=== PATIENT | female | born 2000 | race Caucasian/White ===

== ENCOUNTER → 2018-09-14 14:30 | Observation (INO) ==
[2018-09-14 12:40] LABS: Amphetamine Screen,Urine Negative ng/mL (Cutoff=1000); Barbiturate Screen,Urine Negative ng/mL (Cutoff=200); Benzodiazepines Screen,Urine Negative ng/mL (Cutoff=200); Cannabinoid Screen,Urine Negative ng/mL (Cutoff = 50); Cocaine Screen,Urine Negative ng/mL (Cutoff= 300); Opiate Screen,Urine Negative ng/mL (Cutoff=300); Phencyclidine Screen,Urine Negative ng/mL (Cutoff=25)
[2018-09-14 12:48] LABS: Bilirubin,Urine Negative (Negative); Blood,Urine Negative (Negative); Clarity,Urine Clear (Clear); Color,Urine Yellow (Yellow); Glucose,Urine (UA) Normal (Normal); Ketones,Urine Negative (Negative); Leukocyte Esterase,Urine Negative (Negative); Nitrite,Urine Negative (Negative); Protein,Urine Negative (Neg-Trace); Specific Gravity,Urine 1.011 (1.010-1.025); Urobilinogen,Urine Normal (Normal)
--- NOTE | 2018-09-14 13:41 | Discharge Summary ---
Date of Encounter: 09/14/18 Time of Encounter: 13:40 - Discharge Diagnosis (1) 20 weeks gestation of Priority: Primary Status: Acute Comments: Admit to observation for labor evaluation (2) Abdominal cramping affecting Priority: Secondary Status: Acute Comments: Rare contraction on toco monitor. Cervix appears closed visually. Vaginosis panel and GC/Chlamydia samples collected with results all negative. (3) Vaginal discharge during in second trimester Priority: Secondary Status: Acute Comments: Small amount of white/yellow vaginal discharge noted upon SSE. Cervix appears closed on visualization. Vaginosis panel and GC/Chlamydia collected and all returned negative. - Discharge Medications Prescriptions: No Action Levonorgestrel-Ethin Estradiol [Levonor-Eth Estrad 0.15-0.03] 1 each PO DAILY Albuterol Sulfate [Proair Hfa] 1 puff IH DAILY Home Medications: Levonorgestrel-Ethin Estradiol [Levonor-Eth Estrad 0.15-0.03] 1 each PO DAILY 01/20/15 [History] Albuterol Sulfate [Proair Hfa] 1 puff IH DAILY 10/04/15 [History] Allergies/Adverse Reactions: Allergy/AdvReac Type Severity Reaction Status Date / Time No Known Allergies Allergy Verified 12/04/15 20:18 Data Procedures and tests throughout hospitalization: Laboratory Tests 09/14/18 09/14/18 12:05 12:15 Urine Color Yellow Urine Clarity Clear Urine pH 7.0 Ur Specific [place] 1.011 Urine Protein Negative Urine Glucose (UA) Normal Urine Ketones Negative Urine Blood Negative Urine Nitrite Negative Urine Bilirubin Negative Urine Urobilinogen Normal Ur Leukocyte Esterase Negative Ur Culture Indicated? NO Urine Opiates Screen Negative Ur Barbiturates Screen Negative Ur Phencyclidine Scrn Negative Ur Amphetamines Screen Negative U Benzodiazepines Scrn Negative Urine Cocaine Screen Negative U Marijuana (THC) Screen Negative Ur Drug Screen Interp See Below Labs on day of discharge: Labs from last 24 hours 09/14/18 09/14/18 12:15 12:05 Urine Color Yellow Urine Clarity Clear Urine pH 7.0 Ur Specific [place] 1.011 Urine Protein Negative Urine Glucose (UA) Normal Urine Ketones Negative Urine Blood Negative Urine Nitrite Negative Urine Bilirubin Negative Urine Urobilinogen Normal Ur Leukocyte Esterase Negative Ur Culture Indicated? NO Urine Opiates Screen Negative Ur Barbiturates Screen Negative Ur Phencyclidine Scrn Negative Ur Amphetamines Screen Negative U Benzodiazepines Scrn Negative Urine Cocaine Screen Negative U Marijuana (THC) Screen Negative Ur Drug Screen Interp See Below Date of admission: 09/14/18 11:57 Discharging clinician: Kelli Walters Anticipated date of discharge: 09/14/18 - Patient Status Disposition: Home, Self-Care Condition: Good Functional capacity at discharge: independent ambulation Overall status at discharge: patient is progressing back to baseline - Discharge Instructions - Diet and Activity Activity: resume usual activities as tolerated Diet: regular diet Hospital Course EMBEDDED ENGINEER Hospital course: Patient arrives today with complaints of back pain and uterine tightening since . She states there were periods where it did lighten up when she rested and drank plenty of water. She also reported some watery vaginal discharge. She is a her last delivery was born full-term at 37+ weeks. She denies any history of contractions with the first . She denies any consultations thus far with the current . Sterile speculum exam was completed with a small amount of white yellow discharge noted. Sample was obtained for vaginosis panel, cervix appears closed on visualization. GC/ chlamydia was also collected. All samples returned negative, urine was completely within normal limits. Reviewed nonpharmacological methods for relief of discomfort and use of Tylenol and healthcare receptionist. Patient is to return for routine visit as scheduled. Time Attestation: Total time spent providing and/or coordinating discharge services: Time Spent: Less than 30 minutes Exam - Constitutional General appearance IM: A&O X 3, pleasant, no acute distress, answers questions appropriately - Respiratory Respiratory exam: Present: CTAB - Cardiovascular Cardiovascular exam IM: Present: RRR, +S1, +S2 - GI/Abdominal GI/Abdominal exam IM: normal bowel sounds - Rectal Rectal exam: deferred - External exam: normal external exam - Extremities Exam Extremities exam IM: Present: full ROM, normal capillary refill, normal inspection - Neurological Exam Neurological exam: alert, normal gait, oriented X3 - VTE Reasons for not Prescribing Prophylaxis: Treatment not Indicated - Low risk for VTE
[2018-09-14 13:45] LABS: Candida DNA Not Detected (Not Detect); Gardnerella DNA Not Detected (Not Detect); Trichomonas DNA Not Detected (Not Detect)
== END | disposition home or self-care (01) ==
LOC: 1NENULAB
PROVIDERS: ADMIT Registered Nurse; ATTEND Registered Nurse

== ENCOUNTER 2019-01-26 10:53 | Inpatient (IN) ==
[~2019-01-26 10:53] MED LIST: *HR* Nalbuphine 10 MG/ML AMPUL IVP PRN; Famotidine 20 MG/2 ML VIAL IVP PRN; Metoclopramide 10 MG/2 ML VIAL IVP PRN; Naloxone 0.4 MG/ML INJ IVP PRN; Ondansetron 4 MG/2 ML VIAL IVP PRN
--- NOTE | 2019-01-26 10:59 | OB/GYN History & Physical ---
Date of Encounter: 01/26/19 Time of Encounter: 10:56 Assessment and Plan (1) 39 weeks gestation of Current visit: Yes Status: Acute admitted for labor Dr. Montez aware of patient's status and POC. She is here and available if needed (2) Tobacco use affecting in third trimester, antepartum Current visit: Yes Status: Acute smoking cessation discussed with patient History of Present Illness Chief complaint: labor HPI: Ms. López is a 18 year old female @ 39w1d [facility] with contractions that started around 0400. Patient reports she did have some vaginal discharge yesterday evening. Patient denies any vaginal bleeding. She reports good movement. Patient denies any complications with current . She receives care with Dr. Scherer. Blood type: A Positive Rubella: Negative Hep B: Nonreactive GBS: Negative Past Med Surg Social Fam HX - Past Medical History Source: patient Medical history: asthma Additional medical history: Seasonal allergies Psychiatric history: no psych history - Past Surgical History Surgical History: orthopedic, other Additional surgical history: Rt knee surgery - Social History Smoking Status: Current every day smoker Packs per day: 5 cig a day Smokeless Tobacco Status: No Alcohol use: none Drug use: none Current living situation: Home - Independent Activity Level: Independent ambulation - Family History Mother Living Status: Still Living Hx Family Cardiac Disorders: No Hx Family Respiratory Disorders: No Hx Family Cancer: No Hx Family GI Disorders: No Hx Family Genitourinary Disorders: No Hx Family Endocrine Disorder: No Hx Family Musculoskeletal Disorders: No Hx Family Neuromuscular Disorders: No Hx Family Neurologic Disorders: No Hx Family HEENT Disorders: No Hx Family Autoimmune Disorders: No Hx Family Reproductive Disorders: No Hx Family Psychosocial Disorders: No Hx Family Medical Disorders: No Obstetrical History - Pregnancies : 2 Para: 1 Term: 1 : 0 Ab's: 0 Livin Medications and Allergies Pnv No.95/Ferrous Fum/Folic AC [ Caplet] 1 each PO DAILY 10/24/18 [History] Allergy/AdvReac Type Severity Reaction Status Date / Time No Known Allergies Allergy Verified 10/24/18 22:20 Review of System OB - Constitutional Constitutional ROS IM: no chills, no fever(s), no headache(s) - Cardiovascular Cardiovascular: no chest pain, no syncope - Respiratory Respiratory: no cough, no dyspnea, no wheezing - Gastrointestinal Gastrointestinal: no abdominal pain, no heartburn, no nausea, no vomiting - Genitourinary Genitourinary: vaginal discharge (per HPI), no urinary frequency, no urinary hesitancy, no urinary urgency, no vaginal odor, no vaginal pruritis Exam - Constitutional Constitutional: well developed, well nourished, no acute distress, average body habitus - HEENT HEENT: Normocephaly, Mucus Membranes Moist - Neck Neck exam: full ROM, supple - Lungs Respiratory exam: wheezes (bilateral) - Cardiovascular Cardiovascular exam: RRR, +S1, +S2 - Abdomen Abdomen: Present: bowel sounds normal, gravid, non tender - Extremities Extremities exam: full ROM, normal inspection Deep Tendon Reflex Grade: 2+ Normal - Cervix Dilation: 5 Effacement: 90 Station: -1 - Uterus Uterus exam: Present: normal size, normal contour - Anus/Rectum Anus/Rectum: Present: normal perianal skin - Comments Comments: FHR 135 bpm moderate variability +15x15 accels noted no decels noted at this time. Contractions irregular at this time. Results All other labs normal. - VTE Reasons for not Prescribing Prophylaxis: Treatment not Indicated - Low risk for VTE
[2019-01-26] MEDS ORDERED: Ringers Solution, Lactated 1,000 ML IVC SCH (11:00)
[2019-01-26 11:37] LABS: Basophils % 0.2 %; Eosinophils # 0.1 K/mcL (0.0-0.6); Eosinophils % 0.4 %; Hematocrit 37.6 % (35.3-44.9); Hemoglobin 12.4 g/dL (11.5-15.4); Immature Granulocytes % 1.2 % (0-4); Lymphocytes # 2.5 K/mcL (0.6-4.6); Lymphocytes % 14.8 %; Mean Corpuscular Hemoglobin 30.7 pg (28.0-33.3); Mean Corpuscular Volume 93.1 fL (83.0-100.0); Mean Platelet Volume 11.2 fL (9.4-12.4); Monocytes # 1.2 K/mcL (0.0-1.3); Neutrophils # 12.8 K/mcL (1.6-8.9); Platelet Count 253 K/mcL (140-400); Red Blood Count 4.04 M/mcL (3.82-4.97); Red Cell Distribution Width 13.1 % (11.5-14.5); Segmented Neutrophils % 76.4 %; White Blood Count 16.8 K/mcL (4.3-11.1)
[2019-01-26 11:53] LABS: Amphetamine Screen,Urine Negative ng/mL (Cutoff=1000); Barbiturate Screen,Urine Negative ng/mL (Cutoff=200); Benzodiazepines Screen,Urine Negative ng/mL (Cutoff=200); Cannabinoid Screen,Urine Negative ng/mL (Cutoff = 50); Cocaine Screen,Urine Negative ng/mL (Cutoff= 300); Opiate Screen,Urine Negative ng/mL (Cutoff=300); Phencyclidine Screen,Urine Negative ng/mL (Cutoff=25)
--- NOTE | 2019-01-26 12:21 | OB Labor Progress Note ---
Date of Encounter: 01/26/19 Time of Encounter: 12:19 Labor Progress Note - Subjective Subjective: Patient doing well. Discussed POC with patient. Patient denies any questions or concerns. - Cervix Cervix: 6/100/0 - Heart Tones Heart Tones: 140 bpm moderate variability +15x15 accels no decels noted. Cat. 1 tracing - Mylo Mylo: 2-5 min apart - Interventions Interventions: SVE, AROM moderate amount of clear fluid. Patient tolerated well. - Plan Physician notified: No Plan: Continue labor management anticipate
[2019-01-26] MEDS ORDERED: Epidural Premix (fent/bupiv) 110 ML EP SCH (14:15)
[2019-01-26] MEDS ORDERED: Lidocaine -MPF 1% 5 ML AMPUL ONE (14:56)
--- NOTE | 2019-01-26 15:16 | OB/GYN Procedure Note ---
Delivery - Delivery Date: 01/26/19 Provider: Violette Estrada (Huan, PGY1) Intrapartum events: none Delivery augmentation: rupture of membranes Delivery monitor: external FHT, external uterine Anesthesia: epidural Quantitated Blood Loss: 100 - (s) Infant A Delivery Date: 01/26/19 Infant Delivery Time: 15:17 Presentation: vertex Position: KAT Route of delivery: Gender: Male Viability: Viable Pounds: 7 Ounces: 10 at 1 minute: 8 at 5 mins: 9 Shoulder Dystocia: not encountered Placenta: spontaneous, uterine exploration Cord: nuchal cord (x1 loose), 3 umbilical vessels, nuchal reduced - Repair Episiotomy: none Laceration Description: Labial (left labial repaired with 4-0 vicryl, right labi al hemastatic) - Complications Delivery complications: none - Disposition Mom disposition: stable in LDR disposition: stable in LDR - Comments Comments: Called to LDR for delivery. Patient placed in stirrups and prepped for delivery. I was gowned and gloved and together with Dr. Pressley, PGY 1 delivered a viable male over an intact perineum. A nuchal cord was noted and easily reduced. No shoulder dystocia or meconium was encountered. was placed on maternal abdomen. Lidocaine 1% was used to anesthetize the left labia for repair. A 4-0 vicryl was used for left labial repair. The right labial laceration was hemastatic and did not require repair. The cord was then clamped and cut after pulsations ceased. A cord segment was collected. Placenta delivered spontaneously and visually intact. The uterus was explored no blood clots noted. EBL 100, Apgars 8/9. All counts correct. Pericare provided. Both Mother and infant stable in LDR for 2 hour recovery.
--- NOTE | 2019-01-26 15:22 | Anesthesia Evaluation PreOp ---
Date of Encounter: 01/26/19 Time of Encounter: 14:15 - Past History Planned Operation: karli Cardiac History: Denies any Significant Hx Pulmonary History: Denies Any Significant HX RN MED SURG History: Denies Any Significant HX Other Medical History: Denies Any Significant HX Anesthesia History: No Prior Anesthetic Complications : Yes Test: Positive Alcohol Use: none Drug use: none Medications and Allergies Pnv No.95/Ferrous Fum/Folic AC [ Caplet] 1 each PO DAILY 10/24/18 [History] Allergy/AdvReac Type Severity Reaction Status Date / Time No Known Allergies Allergy Verified 10/24/18 22:20 - Meds/Allergy Pre-op Review Medications Reviewed: Yes Allergies Reviewed: Yes Beta Blockers on Current Med List: No Anesthesia Results - Labs 01/26/19 11:01 Anesthesia Exam - HEENT Pupil (Motor): Pupils equal Mallampati: II Teeth: Normal Oral Opening: Greater than 3 - RN MED SURG LOC: Oriented RN MED SURG Motor: Normal RUE, Normal LUE, Normal RLE, Normal LLE, Normal Face RN MED SURG Sensory: Normal: RUE, LUE, RLE, LLE, Face - Cardiac Rhythm: Regular Murmur: None JVD: No Carotid Bruit: No - Pulmonary Breath Sounds: bilateral Clear Respiratory Effort: Symmetrical Anesthesia Assess/Plan ASA Score: 1 Level of consciousness: Cooperative Anesthetic Plan: Epidural
--- NOTE | 2019-01-26 15:24 | Anesthesia Procedures ---
Date of Encounter: 01/26/19 Time of Encounter: 14:15 Procedures: Anesthesia - Epidural/Spinal Patient ID/Chart reviewed: Yes Patient examined: Yes OB Eval: Gestational age: 39.1 OB Eval: : 2 OB Eval: Hx Para: 1 OB Eval: Contractions: Non-stressed pattern Consent Obtained: Yes Site Prep: Aseptic Technique, Sterile prep and drape, Povidone-Iodine 1% Patient position: upright Amount of Local Anesthetic used: 3 Touhy Needle Gauge: 18 Touhy Needle Depth (cm): 5 Catheter Depth at Skin (cm): 8 Test Dose (1.5% Lido + Epi): Volume given (mls): 3 Test Dose Result: Negative Loading Dose Administered: Thru Catheter Infusion Rate (mls/hr): [address]: Tegaderm, Tape Interspace Used: L4-L5 Loss of Resistance (VISH): Yes Blood: No CSF: No Paresthesia: No Vitals + FHT's: tolerated well see nursing notes, FHTS VSS throughout
[2019-01-26] MEDS ORDERED: Acetaminophen 325 MG TABLET PO PRN (17:39)
[2019-01-26] MEDS ORDERED: Benzocaine/Menthol 56 GM AEROSOL SPRAY TP PRN (17:39)
[2019-01-26] MEDS ORDERED: Lanolin 7 G OINT...G. TP PRN (17:39)
[2019-01-26] MEDS ORDERED: Oxytocin 20 units/ LR 1000 mL 20 UNIT/1,000 ML BAG IVC SCH (17:39)
[2019-01-26] MEDS ORDERED: Measles/Mumps/Rubella Vacc 0.5 ML VIAL SQ PRN (17:39)
[2019-01-26] MEDS ORDERED: Ibuprofen 600 MG TABLET PO PRN (17:39)
[2019-01-27] MEDS ORDERED: Prenatal Vit/FA 1 EACH TABLET PO SCH (09:00)
[2019-01-27 09:32] VITALS: BP 102/62
--- NOTE | 2019-01-27 09:41 | Discharge Summary ---
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 PRN Reason: Sore Nipples Mupirocin Calcium [Bactroban Nasal] 1 gm NS BID #20 oint...g. Continued Pnv No.95/Ferrous Fum/Folic AC [ Caplet] 1 each PO DAILY Home Medications: Pnv No.95/Ferrous Fum/Folic AC [ Caplet] 1 each PO DAILY 10/24/18 [History] Acetaminophen [Tylenol] 650 mg PO Q6HR PRN tablet 01/27/19 [Rx] Benzocaine/Menthol [place] [Dermoplast [place]] 1 appl TP QID PRN aerosol 01/27/19 [Rx] Docusate [Colace] 100 mg PO BID #60 capsule 01/27/19 [Rx] Ibuprofen [Motrin] 600 mg PO Q6HR PRN #60 tablet 01/27/19 [Rx] Lanolin [Lansinoh] 1 appl TP TID PRN oint...g. 01/27/19 [Rx] Mupirocin Calcium [Bactroban Nasal] 1 gm NS BID #20 oint...g. 01/27/19 [Rx] Allergies/Adverse Reactions: Allergy/AdvReac Type Severity Reaction Status Date / Time No Known Allergies Allergy Verified 10/24/18 22:20 Data Procedures and tests throughout hospitalization: Laboratory Tests 01/26/19 01/26/19 01/26/19 10:16 11:01 17:30 WBC 16.8 H RBC 4.04 Hgb 12.4 Hct 37.6 MCV 93.1 MCH 30.7 MCHC 33.0 RDW 13.1 Plt Count 253 MPV 11.2 Immature Gran % 1.2 Seg Neutrophils % 76.4 Lymphocytes % 14.8 Monocytes % 7.0 Eosinophils % 0.4 Basophils % 0.2 Neutrophils # 12.8 H Lymphocytes # 2.5 Monocytes # 1.2 Eosinophils # 0.1 Basophils # 0.0 Nasal Screen MRSA (PCR) DETECTED A Urine Opiates Screen Negative Ur Buprenorphine Scrn Negative Ur Barbiturates Screen Negative Ur Phencyclidine Scrn Negative Ur Amphetamines Screen Negative U Benzodiazepines Scrn Negative Urine Cocaine Screen Negative U Marijuana (THC) Screen Negative Ur Drug Screen Interp See Below Labs on day of discharge: Labs from last 24 hours 01/26/19 01/26/19 01/26/19 17:30 11:01 10:16 WBC 16.8 H RBC 4.04 Hgb 12.4 Hct 37.6 MCV 93.1 MCH 30.7 MCHC 33.0 RDW 13.1 Plt Count 253 MPV 11.2 Immature Gran % 1.2 Seg Neutrophils % 76.4 Lymphocytes % 14.8 Monocytes % 7.0 Eosinophils % 0.4 Basophils % 0.2 Neutrophils # 12.8 H Lymphocytes # 2.5 Monocytes # 1.2 Eosinophils # 0.1 Basophils # 0.0 Nasal Screen MRSA (PCR) DETECTED A Urine Opiates Screen Negative Ur Buprenorphine Scrn Negative Ur Barbiturates Screen Negative Ur Phencyclidine Scrn Negative Ur Amphetamines Screen Negative U Benzodiazepines Scrn Negative Urine Cocaine Screen Negative U Marijuana (THC) Screen Negative Ur Drug Screen Interp See Below Date of admission: 01/26/19 10:53 Consults: 01/26/19 17:39 Consult to Hospital Admitting Clerk [CONS] Routine Comment: Vaginal delivery, consult needed Discharging clinician: Jessica Miller Anticipated date of discharge: 01/27/19 - Patient Status Disposition: Home, Self-Care Condition: Good Functional capacity at discharge: independent ambulation Overall status at discharge: patient is progressing back to baseline - Discharge Instructions Instructions: Measles, Mumps, and Rubella Virus Vaccine, Live (MMR Vaccine) (Injection) Follow Up With: Violette Estrada CNM [Non-Partnered Physician] - - Diet and Activity Activity: resume usual activities as tolerated Diet: regular diet Hospital Course Reason for admission: IUP at term Delivery: Episiotomy: none Laceration: other Other procedures: none complications: none Discharge diagnosis: IUP at term delivered baby: male Hospital course: Delivery - Delivery Date: 01/26/19 Provider: Violette Estrada (Huan, PGY1) Intrapartum events: none Delivery augmentation: rupture of membranes Delivery monitor: external FHT, external uterine Anesthesia: epidural Quantitated Blood Loss: 100 - (s) Infant A Infant Delivery Date: 01/26/19 Delivery Time: 15:17 Presentation: vertex Position: KAT Route of delivery: Gender: Male Viability: Viable Pounds: 7 Ounces: 10 at 1 minute: 8 at 5 mins: 9 Shoulder Dystocia: not encountered Placenta: spontaneous, uterine exploration Cord: nuchal cord (x1 loose), 3 umbilical vessels, nuchal reduced - Repair Episiotomy: none Laceration Description: Labial (left labial repaired with 4-0 vicryl, right labial hemastatic) - Complications Delivery complications: none - Disposition Mom disposition: stable in PP and appropriate for discharge. Time Attestation: Total time spent providing and/or coordinating discharge services: Time Spent: Less than 30 minutes Exam - Constitutional Vitals: Temp Pulse Resp BP Pulse Ox 98.4 F 83 14 102/62 98 01/27/19 09:31 01/27/19 09:31 01/27/19 09:31 01/27/19 09:31 01/27/19 09:31 General appearance IM: A&O X 3 - Respiratory Respiratory exam: Present: CTAB - Cardiovascular Cardiovascular exam IM: Present: RRR - GI/Abdominal GI/Abdominal exam IM: soft - Uterine Tone: Firm Uterus Position: At Umbilicus - Extremities Exam Extremities exam IM: Present: normal capillary refill, normal inspection - Neurological Exam Neurological exam: oriented X3 - Psychiatric Additional comments: reports good mood
== END 2019-01-27 10:33 | disposition home or self-care (01) | DRG 560 ==
LOC: 1NENULAB → 1NENUOBS 17:40
PROVIDERS: ADMIT Obstetrics & Gynecology; ATTEND Obstetrics & Gynecology